=== PATIENT | female | born 1980 | race Hispanic/Latino ===

== ENCOUNTER 2018-01-17 08:09 | Inpatient (IN) | payer OTHER ==
[2018-01-17 08:14] VITALS: O2SAT 100
[2018-01-17 08:17] VITALS: BMI 27.4
--- NOTE | 2018-01-17 08:46 | ED PDOC ---
Arrival/HPI - General Chief Complaint: Psychiatric Evaluation Historian: Patient - History of Present Illness Narrative History of Present Illness (Text): 01/17/18 08:58 A 38 year old female, whose past medical history includes anxiety and depression, presents to the emergency department complaining of anxiety and depression. Patient reports also experiencing suicidal ideation, explaining feeling "unmotivated, has no energy, and would just like to sleep and never wake up." . Patient denies any fever, chills, nausea, vomiting, diarrhea, abdominal pain, chest pain, shortness of breath, or any other complaints at this time. Denies any substance abuse. Allergic to penicillin. Admits to drinking socially and is a non-smoker, however states she vapes. Past Medical History - Provider Review Nursing Documentation Reviewed: Yes - Psychiatric Hx Psychophysiologic Disorder: Yes Hx Anxiety: Yes Hx Depression: Yes Hx Substance Use: No - Surgical History Hx Appendectomy: Yes Hx Cholecystectomy: Yes Hx Tonsillectomy: Yes Family/Social History - Physician Review Nursing Documentation Reviewed: Yes Family/Social History: No Known Family HX Smoking Status: Unknown If Ever Smoked Hx Alcohol Use: No Hx Substance Use: No Allergies/Home Meds Allergies/Adverse Reactions: Allergies Penicillins Allergy (Verified 01/17/18 08:17) RASH Home Medications: Home Meds Medication Instructions Recorded Confirmed Atomoxetine HCl [Strattera] 40 mg PO QAM 01/17/18 01/17/18 Quetiapine Fumarate [Seroquel] 100 mg PO HS 01/17/18 01/17/18 Sertraline HCl 150 mg PO DAILY 01/17/18 01/17/18 Review of Systems - Physician Review All systems were reviewed & negative as marked: Yes - Review of Systems Constitutional: absent: Fevers, Night Sweats Respiratory: absent: SOB Cardiovascular: absent: Chest Pain Gastrointestinal: absent: Abdominal Pain, Diarrhea, Nausea, Vomiting Physical Exam - Physical Exam Narrative Physical Exam (Text): PE: Gen: NAD, cooperative, well appearing, non-toxic. Head: NCAT. HEENT: EYES: PERRL, EOMI, conjunctiva clear, EARS: TMs clear MOUTH: moist MM, posterior pharynx without erythema or exudate, uvula midline. CV: (+) S1S2, RRR, no M/G/R LUNGS: CTA B/L, No W/R/R, good air movement Abd: Soft, NTTP, no guarding, rebound or rigidity. Neuro: AAO x 3, GCS 15, CN 2-12 intact, motor and sensory grossly intact, 5/5 muscle strength B/L UE's and LE's, flat affect ext: no cyanosis or edema Vital Signs Reviewed: Yes Vital Signs Temp Pulse Resp BP Pulse Ox 01/17/18 08:13 97.9 F 80 18 124/82 100 Temperature: Afebrile Blood Pressure: Normal Pulse: Regular Respiratory Rate: Normal Appearance: Positive for: Well-Appearing, Non-Toxic, Comfortable Pain Distress: None Mental Status: Positive for: Alert and Oriented X 3, other (flat affect) Medical Decision Making ED Course and Treatment: 01/17/18 08:58 Impression: 38 year old female with anxiety and depression, as well as SI. Plan: -- Reassess and disposition Progress Notes: 01/17/18 09:00 Reviewed clearance from [facility]. Patient to be admitted into psychiatry. - Scribe Statement The provider has reviewed the documentation as recorded by the Ca Sinha Provider Scribe Attestation: All medical record entries made by the Ca were at my direction and personally dictated by me. I have reviewed the chart and agree that the record accurately reflects my personal performance of the history, physical exam, medical decision making, and the department course for this patient. I have also personally directed, reviewed, and agree with the discharge instructions and disposition. Disposition/Present on Arrival - Present on Arrival Any Indicators Present on Arrival: No History of DVT/PE: No History of Uncontrolled Diabetes: No Urinary Catheter: No History of Decub. Ulcer: No History Surgical Site Infection Following: None - Disposition Have Diagnosis and Disposition been Completed?: Yes Diagnosis: Depression, Anxiety Disposition: HOSPITALIZED Disposition Time: 08:45 Patient Plan: Admission Condition: STABLE
--- NOTE | 2018-01-18 07:13 | PCM.BM ---
<KelvinKhurram - Last Filed: 01/18/18 07:10> Treatment Plan Problems - Problems identified on initial assessmt Helplessness/Hopelessness Date Initiated: 01/17/18 Time Initiated: 11:00 Assessment reference: NA Status: Active Priority: 1 Feelings of Worthlessness Date Initiated: 01/17/18 Time Initiated: 11:00 Assessment reference: NA Status: Active Priority: 2 Altered Sleep Patterns Date Initiated: 01/17/18 Time Initiated: 11:00 Assessment reference: NA Status: Active Priority: 3 Ineffective Coping Date Initiated: 01/17/18 Time Initiated: 11:00 Assessment reference: NA Status: Active Priority: 4 Treatment assets and liabiliti Patient Assests: adapts well, cooperative, educated, insightful, self-reliant, ADL independent, physically healthy, negotiates basic needs Patient Liabilities: live alone, financial problems, poor support system - Milieu Protocol Maintain good personal hygiene: daily Encourage regular showers, every shift Remind patient to perform daily oral care, every shift Assist patient to perform ADL's Maintain personal safety: every shift Educate patient to report safety concerns to staff, every shift Monitor environment for contraband/sharps Medication safety: Monitor for expected outcome, potential side effects: every shift, Assess barriers to learning: every shift, Assess readiness for medication education: every shift Family Contact Family involvement: Family/SO is involved Family contact: Patient agrees to contact - Goals for Treatment Patient goals for treatment: Depression, anxiety, sleep. To feel motivated and focused. Discharge/Continuing Care - Education Needs Education Needs: Patient Medication, Patient Diagnosis/Disease Process, Patient Coping Skills, Patient Anger Management skills, Patient Placement options, Patient Community resources, Patient Activities of Daily Living, Patient Pain, Patient Nutrition, Patient Uses of Medical Equipment, Patient Health Practices/Safety, Patient Personal Hygiene/Grooming, Patient Aftercare Safety Plan - Discharge Discharge Criteria: Tolerates medication w/o severe side effects, Normal sleep pattern Discharge to:: Home <Priscila Fernández - Last Filed: 01/18/18 08:51> - Diagnosis (1) MDD (major depressive disorder) Status: Acute Interventions: 01/18/18 08:51 Psychoeducation Psychopharmacology/adjustment of medications as needed/ monitoring possible side effects Evaluate pt on daily basis Compliance with medications and follow up appointments Suicide and homicide risk assessment and prevention Relapse prevention Reduction of symptoms Improve functional status Family involvement As outpatient: cognitive behavioral therapy (2) ALYCE (generalized anxiety disorder) Status: Acute Interventions: 01/18/18 08:52 Psychoeducation Psychopharmacology/adjustment of medications as needed/ monitoring possible side effects Evaluate pt on daily basis Discussion of importance of being compliant with medications and follow up appointments Suicide and homicide risk assessment and prevention, coping strategies, safety plan Reduction of symptoms Relaxation techniques and breathing exercises Improve functional status Family involvement Cognitive behavioral therapy as outpatient <Manasa Santos - Last Filed: 01/19/18 10:33> Family Contact Family involvement: Family/SO is involved <Dixie Sarmiento - Last Filed: 01/19/18 12:02>
[2018-01-18 08:20] LABS: GLUCOSE,FASTING 93 mg/dL (65-110); HDL CHOLESTEROL 39 mg/dL (29-60)
[2018-01-18 09:03] LABS: LDL CHOLESTEROL 117 mg/dL (0-129)
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
[2018-01-19] MEDS: buPROPion 150 mg/24 Hours XL Tab PO SCH (11:36)
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
[2018-01-20] MEDS: buPROPion 150 mg/24 Hours XL Tab PO SCH (09:25)
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
[2018-01-21 07:35] VITALS: RESP 20
[2018-01-21] MEDS: buPROPion 150 mg/24 Hours XL Tab PO SCH (09:20)
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
[2018-01-22] MEDS: buPROPion 150 mg/24 Hours XL Tab PO SCH (09:10)
--- NOTE | 2018-01-22 12:09 | PCM.PYCHPN ---
Psychiatric Progress Note - Psychiatric Progress Note Patient seen today, length of contact: 30min Problems Identified/Issues Discussed: I reviewed assessment and recent notes. I met with patient at bedside. She is fairly groomed and well-oriented to month, year location and circumstances. Focu s and attention are fair, eye contact is good. Patient is still depressed but feels a lot better since admission. Anxiety and insomnia persist. She denies SI/HI Patient is tolerating her medications. She is very aware of their indications and latency. She appears hopeful and future oriented. She denies issues with his medications or any new discomfort or pain. There were no behavioral issues overnight. Diagnostic Results: MDD r/o adjustment disorder Medication Change: No ( ) Medical Record Reviewed: Yes Mental Status Examination - Cognitive Function Orientation: Person, Place, Situation, Time Memory: Intact Attention: WNL (Some improvement) Concentration: WNL (Some improvement) Association: WNL Fund of Knowledge: WNL - Mood Mood: Depressed (I feel little better), Anxious - Affect Affect: Constricted (But more reactive and mood congruent) - Formal Thought Process Formal Thought Process: No Impairment - Suicidal Ideation Suicidal Ideation: No - Homicidal Ideation Homicidal Ideation: No Goal/Treatment Plan - Goal/Treatment Plan Need for Continued Stay: Remain at risks for inpatient hospitalization, Severe depression anxiety, Discharge may exacerbated symptoms, Severe functional impairment Progress Toward Problem(s) and Goals/Treatment Plan: * c/w current tx and plan * Wellbutrin 300 mg po daily for depression and attention deficit symptoms * Klonopin 0.5 mg po bid for anxiety * Ambien 10 mg po HS for insomnia * Vitals reviewed and noted below: Selected Entries 01/20/18 01/21/18 07:24 07:36 Temperature 98.4 F Temperature Oral Source Pulse Rate 75 81 Respiratory 19 20 Rate Blood Pressure 100/62 113/68 Estimated Date of D/C: 01/24/18
[2018-01-23] MEDS: buPROPion 150 mg/24 Hours XL Tab PO SCH (08:53)
--- NOTE | 2018-01-23 10:01 | PCM.PYCHPN ---
Psychiatric Progress Note - Psychiatric Progress Note Patient seen today, length of contact: 30min Problems Identified/Issues Discussed: I reviewed recent notes and met with patient at bedside. She is fairly groomed and well-oriented to month, year location and circumstances. Focus and attention are fair, eye contact is good. Patient is friendly and bright this morning, indicates that she is improving. Sleep is still restless however patient feels that the quality of sleep is better because she feels more rested during the day. Anxiety persists but less distressing than admission. Thus far she is tolerating wellbutrin and the rest of her medications well. Patient denies SI/HI. She appears hopeful and future oriented. Staff feels she is attention-seeking at times but overall, her behavior is benign and positive for others around her. There were no major behavioral issues over the weekend. Diagnostic Results: MDD r/o adjustment disorder Medication Change: No ( ) Medical Record Reviewed: Yes Mental Status Examination - Cognitive Function Orientation: Person, Place, Situation, Time Memory: Intact Attention: WNL (Some improvement) Concentration: WNL (Some improvement) Association: WNL Fund of Knowledge: WNL - Mood Mood: Depressed (I feel little better), Anxious - Affect Affect: Constricted (But more reactive and mood congruent) - Formal Thought Process Formal Thought Process: No Impairment - Suicidal Ideation Suicidal Ideation: No - Homicidal Ideation Homicidal Ideation: No Goal/Treatment Plan - Goal/Treatment Plan Need for Continued Stay: Remain at risks for inpatient hospitalization, Severe depression anxiety, Discharge may exacerbated symptoms, Severe functional impairment Progress Toward Problem(s) and Goals/Treatment Plan: * c/w current tx and plan * Wellbutrin 300 mg po daily for depression and attention deficit symptoms * Klonopin 0.5 mg po bid for anxiety * Ambien 10 mg po HS for insomnia * Vitals reviewed and noted below: Selected Entries 01/21/18 01/22/18 07:36 07:34 Temperature 98.6 F 97.9 F Pulse Rate 81 80 Respiratory 20 20 Rate Blood Pressure 113/68 106/61 * No new weekend lab results Estimated Date of D/C: 01/24/18
[2018-01-24 07:11] VITALS: BP 90/50; PULSE 80; TEMP 97.8
[2018-01-24] MEDS: buPROPion 150 mg/24 Hours XL Tab PO SCH (08:23)
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
== END 2018-01-24 14:19 | disposition home or self-care (01) | DRG 426 ==
LOC: ED 08:09 → ERH 09:11 → PSYC 09:55
PROVIDERS: ADMIT Psychiatry & Neurology Psychiatry; ATTEND Psychiatry & Neurology Psychiatry
DX: F32.9 Major depressive disorder, single episode, unspecified (principal); F14.11 Cocaine abuse, in remission; F43.10 Post-traumatic stress disorder, unspecified; F90.9 Attention-deficit hyperactivity disorder, unspecified type; F41.0 Panic disorder [episodic paroxysmal anxiety]; F41.1 Generalized anxiety disorder; G47.00 Insomnia, unspecified; R45.851 Suicidal ideations; Z62.810 Personal history of physical and sexual abuse in childhood; Z79.899 Other long term (current) drug therapy; Z88.0 Allergy status to penicillin; Z90.49 Acquired absence of other specified parts of digestive tract; Z91.410 Personal history of adult physical and sexual abuse; F10.11 Alcohol abuse, in remission; Z91.018 Allergy to other foods